=== PATIENT | female | born 1970 | race Two or more races ===

== ENCOUNTER 2018-07-16 09:52 | Emergency (ER) | payer SELFPAY ==
[~2018-07-16] VITALS: Ht 157.5 cm; Wt 79.4 kg
[2018-07-16 10:12] VITALS: BP 143/74
[2018-07-16] MEDS ORDERED: FLUORESCEIN OPHTH TEST STRIP. OD ONE (10:45)
[2018-07-16] MEDS ORDERED: TETRACAINE 0.5% OPHTH SOLUTION 4ML BOTTLE. OD ONE (10:45)
[2018-07-16] MEDS ORDERED: ERYT1OIN6 OP (11:29)
[2018-07-16] MEDS ORDERED: HYDR-2761 PO (11:29)
--- NOTE | 2018-07-16 11:29 | PHYS DOC ---
Past Medical History Past Medical History: Diabetes-Type II, High Cholesterol, Hypertension Past Surgical History: No Surgical History Alcohol Use: None Drug Use: None Adult General Chief Complaint Chief Complaint: EYE PROBLEMS HPI HPI Patient is a 48 year old [f__sex] who presents with [] Review of Systems Review of Systems Constitutional: Denies fever or chills [] Eyes: Denies change in visual acuity, redness, or eye pain [] HENT: Denies nasal congestion or sore throat [] Respiratory: Denies cough or shortness of breath [] Cardiovascular: No additional information not addressed in HPI [] GI: Denies abdominal pain, nausea, vomiting, bloody stools or diarrhea [] : Denies dysuria or hematuria [] Musculoskeletal: Denies back pain or joint pain [] Integument: Denies rash or skin lesions [] Neurologic: Denies headache, focal weakness or sensory changes [] Endocrine: Denies polyuria or polydipsia [] All other systems were reviewed and found to be within normal limits, except as documented in this note. Current Medications Current Medications Current Medications Medications (Trade) Dose Ordered Sig/Kat Start Time Stop Time Status Last Admin Dose Admin Fluorescein Sodium (Ful-Yakelin) 1 strip 1X ONCE 07/16/18 10:45 07/16/18 10:46 DC 07/16/18 10:46 1 STRIP Tetracaine HCl (Tetracaine) 1 drop 1X ONCE 07/16/18 10:45 07/16/18 10:46 DC 07/16/18 10:46 1 DROP Allergies Allergies Allergies Coded Allergies Type Severity Reaction Last Updated Verified No Known Drug Allergies 07/16/18 No Physical Exam Physical Exam Constitutional: Well developed, well nourished, no acute distress, non-toxic appearance. [] HENT: Normocephalic, atraumatic, bilateral external ears normal, oropharynx moist, no oral exudates, nose normal. [] Eyes: PERRLA, EOMI, conjunctiva normal, no discharge. [] Neck: Normal range of motion, no tenderness, supple, no stridor. [] Cardiovascular:Heart rate regular rhythm, no murmur [] Lungs & Thorax: Bilateral breath sounds clear to auscultation [] Abdomen: Bowel sounds normal, soft, no tenderness, no masses, no pulsatile masses. [] Skin: Warm, dry, no erythema, no rash. [] Back: No tenderness, no CVA tenderness. [] Extremities: No tenderness, no cyanosis, no clubbing, ROM intact, no edema. [] Neurologic: Alert and oriented X 3, normal motor function, normal sensory function, no focal deficits noted. [] Psychologic: Affect normal, judgement normal, mood normal. [] Current Patient Data Vital Signs Vital Signs Date Time Temp Pulse Resp B/P (MAP) Pulse Ox O2 Delivery O2 Flow Rate FiO2 07/16/18 10:12 98.3 63 16 143/74 (97) 98 Room Air 98.3 EKG EKG [] Radiology/Procedures Radiology/Procedures []Using tetracaine and fluroscein the patient's right eye was examined under Wood's lamp and an area of uptake at approximately 9 o'clock lateral to the iris was noted, consistent with a conjunctival abrasion. Patient's ocular symptoms have stabilized while they have been evaluated in the department and are appropriate for outpatient work up. No evidence of ruptured globe, retinal detachment, acute angle closure glaucoma , or deep space infection. Course & Med Decision Making Course & Med Decision Making Pertinent Labs and Imaging studies reviewed. (See chart for details) [] Dragon Disclaimer Dragon Disclaimer This electronic medical record was generated, in whole or in part, using a voice recognition dictation system. Departure Departure Impression: Primary Impression: Conjunctival abrasion Additional Impressions: Hordeolum externum right upper eyelid Hordeolum externum left upper eyelid Disposition: 01 HOME, SELF-CARE Condition: STABLE Referrals: YUNG MOCTEZUMA (PCP) Patient Instructions: Sty Additional Instructions: Stop using the Tobramycin that was previously prescribed. Fill the prescription( s) and use as directed. Apply warm, moist washcloths to eyes needed for comfort. Recommend use of baby shampoo to wash eyelids, not inside of your eye. Follow-up with your primary care doctor in 1-2 days. Return to the emergency room if your symptoms worsen. Scripts Hydrocodone Bit/Acetaminophen (HYDROCODONE-APAP 5-325 ) 1 Tab Tablet 1 TAB PO PRN Q6HRS PRN for PAIN for 3 Days, #12 TAB 0 Refills Prov: LAWRENCE GOMEZ [employer] 07/16/18 Erythromycin Base (Erythromycin) 1 Gm Oint...g. 0.25 INCH OP QID for 5 Days, #1 TUBE 0 Refills Prov: LAWRENCE GOMEZ [employer] 07/16/18 Problem Qualifiers Primary Impression: Conjunctival abrasion Encounter type: initial encounter Laterality: right Qualified Codes: S05.01XA - Injury of conjunctiva and corneal abrasion without foreign body, right eye, initial encounter LAWRENCE GOMEZ [employer] Jul 16, 2018 11:29
== END 2018-07-16 11:38 | disposition home or self-care (01) ==
LOC: ER 09:52
DX: S05.01XA Injury of conjunctiva and corneal abrasion without foreign body, right eye, initial encounter (principal); H00.014 Hordeolum externum left upper eyelid; H00.011 Hordeolum externum right upper eyelid; E11.9 Type 2 diabetes mellitus without complications; E78.00 Pure hypercholesterolemia, unspecified; I10 Essential (primary) hypertension; X58.XXXA Exposure to other specified factors, initial encounter; Y93.89 Activity, other specified; Y92.89 Other specified places as the place of occurrence of the external cause; Y99.8 Other external cause status
CPT/HCPCS: 99283

== ENCOUNTER 2020-04-22 09:22 | Emergency (ER) | payer OTHER ==
[~2020-04-22] VITALS: Ht 157.5 cm; Wt 72.7 kg
[~2020-04-22 09:22] MED LIST: ERYT1OIN6 OP; HYDR-2761 PO
[2020-04-22] MEDS ORDERED: KETOROLAC 30 MG/ML VIAL. IM ONE (10:00)
[2020-04-22] MEDS ORDERED: IBUPROFEN 200 MG TABLET. PO ONE (10:00)
--- NOTE | 2020-04-22 10:10 | PHYS DOC ---
Past Medical History Past Medical History: Diabetes-Type II Past Surgical History: No Surgical History Smoking Status: Never Smoker Alcohol Use: None Drug Use: None General Adult EDM: Chief Complaint: KNEE INJURY HPI: HPI: Patient is a 50 year old female who presents with bilateral knee pain that is worse on the right that started after a fall on . Pt could not come earlier due to working 12 hour shifts since . The pain is rated 7/10 and radiates to thigh and calf. The right knee was swollen but it has gone down. Pt states that she has been taking tylenol and that helps the pain slightly. walking and going up stairs makes the pain worse. Review of Systems: Review of Systems: Constitutional: Denies fever or chills Eyes: Denies redness or eye pain HENT: Denies nasal congestion or sore throat Respiratory: Denies cough or shortness of breath Cardiovascular: Denies chest pain or palpitations GI: Denies abdominal pain, nausea, or vomiting : Denies dysuria or hematuria Musculoskeletal: Denies back pain but endorses b/l knee pain Integument: Denies rash or skin lesions Neurologic: Denies headache, focal weakness or sensory changes Complete systems were reviewed and found to be within normal limits, except as documented in this note. Current Medications: Current Medications Medications (Trade) Dose Ordered Sig/Kat Start Time Stop Time Status Last Admin Dose Admin Ibuprofen (Motrin) 600 mg 1X ONCE 04/22/20 10:00 04/22/20 10:01 UNV Ketorolac Tromethamine (Toradol 30mg Vial) 30 mg 1X ONCE 04/22/20 10:00 04/22/20 10:01 DC Allergies: Allergies: Allergies Coded Allergies Type Severity Reaction Last Updated Verified No Known Drug Allergies 07/16/18 No Physical Exam: PE: Constitutional: Well developed, well nourished, no acute distress, non-toxic appearance HENT: Normocephalic, atraumatic Eyes: PERRL, EOMI, conjunctiva normal, no discharge Neck: Normal range of motion, no tenderness, supple Lungs & Thorax: No respiratory distress, equal chest rise and fall Abdomen: Soft, no tenderness Skin: Warm, dry, no erythema, no rash Back: No tenderness, no CVA tenderness Extremities: tenderness to palpation b/l but worse on the right side on the lateral side, swelling present on right side, ROM limited on right side Neurologic: Alert and oriented X 3, normal motor function, normal sensory function, no focal deficits noted Psychologic: Affect normal, judgment normal Current Patient Data: Vital Signs: Vital Signs Date Time Temp Pulse Resp B/P (MAP) Pulse Ox O2 Delivery O2 Flow Rate FiO2 04/22/20 09:44 98.6 81 18 157/72 (100) 96 Room Air 98.6 EKG: EKG: [] Radiology/Procedures: Radiology/Procedures: PROCEDURE: KNEE RIGHT 3V EXAM: AP, oblique and lateral views right knee DATE: 04/22/2020 9:54 AM INDICATION: Right knee pain COMPARISON: No Prior FINDINGS: No evidence of acute fracture or dislocation. Moderate to large right knee joint effusion. Right knee joint osteoarthritis with mild medial compartment joint space narrowing and tricompartmental osteophytes. 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 IMPRESSION: No acute fracture or dislocation. However moderate to large volume right knee joint effusion is seen. If there is clinical concern for fracture, CT can be performed. Right knee joint osteoarthritis. Electronically signed by: Haja White MD (04/22/2020 10:58 AM) [id number] Course & Med Decision Making: Course & Med Decision Making Pertinent Labs and Imaging studies reviewed. (See chart for details) 50 year old female presents with bilateral knee pain that is worse on the right side. X-rays demonstrated chronic arthritis with a moderate to large volume effusion. Pt instructed to follow up with orthopedics. Pt's knee was wrapped with an aurelio bandage and given crutches. Pt was discharged with naproxen for pain control. Patient stable for discharge with outpatient follow-up with PCP. Discussed findings and plan with patient, who acknowledges understanding and agreement. Tory Disclaimer: Tory Disclaimer: This electronic medical record was generated, in whole or in part, using a voice recognition dictation system. Splinting Splinting : Location: Right knee Pre-Made Type: AURELIO bandage Pre-Proc Neuro Vasc Exam: normal Post-Proc Neuro Vasc Exam: normal, unchanged from pre-exam Departure Departure Impression: Primary Impression: Knee contusion Qualified Codes: S80.01XA - Contusion of right knee, initial encounter Additional Impression: Arthritis Disposition: 01 DC HOME SELF CARE/HOMELESS Condition: STABLE Referrals: YUNG MOCTEZUMA (PCP) NELLIE MALDONADO MD Patient Instructions: Crutch Use, [id number], Knee Sprain, [id number], Knee Wraps (Elastic Bandage) and RICE Additional Instructions: ICE area 20 min on then leave off next 20 mins. May also use over the counter Tylenol as needed for pain Scripts Naproxen (NAPROXEN) 375 Mg Tablet 375 MG PO TID PRN for PAIN, #20 TAB Prov: GUERRERO KAUFMAN DO 04/22/20 GUERRERO KAUFMAN DO Apr 22, 2020 10:10
[2020-04-22] MEDS ORDERED: NAPR-695 PO (10:59)
[2020-04-22 11:00] VITALS: BP 150/64
--- NOTE | 2020-04-22 11:01 | RAD ---
EXAM: AP, oblique and lateral views right knee DATE: 04/22/2020 9:54 AM INDICATION: Right knee pain COMPARISON: No Prior FINDINGS: No evidence of acute fracture or dislocation. Moderate to large right knee joint effusion. Right knee joint osteoarthritis with mild medial compartment joint space narrowing and tricompartmental osteophytes. 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 IMPRESSION: No acute fracture or dislocation. However moderate to large volume right knee joint effusion is seen. If there is clinical concern for fracture, CT can be performed. Right knee joint osteoarthritis. Electronically signed by: Haja White MD (04/22/2020 10:58 AM) [id number]
== END 2020-04-22 11:20 | disposition home or self-care (01) ==
LOC: ER 09:22
DX: S80.01XA Contusion of right knee, initial encounter (principal); M17.11 Unilateral primary osteoarthritis, right knee; E11.9 Type 2 diabetes mellitus without complications; W18.39XA Other fall on same level, initial encounter; Y93.89 Activity, other specified; Y92.89 Other specified places as the place of occurrence of the external cause; Y99.8 Other external cause status
CPT/HCPCS: 73562; 99283